=== PATIENT | female | born 1995 | race Hispanic/Latino ===

== ENCOUNTER 2025-01-30 15:33 | Emergency (ER) | payer SELFPAY ==
[2025-01-30 15:48] VITALS: BP 122/87
[2025-01-30 16:07] LABS: Hematocrit 37.5 % (37.0-47.0); Hemoglobin 11.7 g/dL (12.0-16.0); Mean Corp Hgb Conc. 31.2 g/dL (33.0-37.0); Mean Corpuscular Volume 68.8 fL (81.0-99.0); Nucleated Red Blood Cells % 0 %; Platelet Count 390 10^3/uL (130-400); Red Cell Dist. Width 21.7 % (11.5-14.5)
[2025-01-30 16:19] LABS: HCG, Serum Qualitative Screen Negative
[2025-01-30 16:22] LABS: ALT (SGPT) 21 U/L (0-35); AST (SGOT) 23 U/L (14-36); Albumin 4.4 g/dl (3.5-5.0); Alkaline Phosphatase 65 U/L (38-126); Blood Urea Nitrogen 16 mg/dl (7-17); Calcium 9.6 mg/dl (8.4-10.2); Carbon Dioxide 25 mmol/L (22-30); Chloride 104 mmol/L (98-107); Glucose 92 mg/dl (70-99); Lipase 150 U/L (23-300); Potassium 4.3 mmol/L (3.5-5.1); Sodium 134 mmol/L (135-145); Total Protein 7.6 g/dl (6.3-8.2); eGFR > 60.00
[2025-01-30] MEDS: NSS 1000 IV (18:17)
[2025-01-30] MEDS: TORADOL 15 MG IV (18:17)
[2025-01-30 19:04] LABS: Urine Character Slightly Cloudy (Clear)
--- NOTE | 2025-01-30 19:13 | ED.GENMED ---
History of Present Illness
General
Chief Complaint: Abdominal Pain
Source: patient
Exam Limitations: none
Time Seen by Provider: 01/30/25 17:05
Nursing documentation reviewed up to this point in time: agreed with
History of Present Illness
History of Present Illness:
Patient is a 30-year-old female who presents to the emergency department for evaluation of generalized abdominal discomfort. Patient states that symptoms began approximately 1 hour prior to arrival in the emergency department. She describes a very
vague and generalized pain throughout her abdomen that radiates into her left mid back. Symptoms were sharp and stabbing in nature. She denies any associated fever or chills. She has not had any episodes of vomiting or nausea. No diarrhea. No
dysuria or hematuria. She denies any chest pain or shortness of breath.
Patient denies any past history of similar symptoms.
Review of Systems
Review of Systems
Allergies reviewed?: Yes
All Other Systems: ROS reviewed and negative except as documented in HPI and ROS
Phy Exam
Physical Exam
Physical Exam:
Vitals: Patient's vital signs are stable. Afebrile
General: Patient is well appearing, no acute distress. Nontoxic appearing
Skin: Warm and dry, no rashes or lesions
Head: Normocephalic, atraumatic
Eyes: Sclera nonicteric.
Throat: Protecting airway
Neck: Normal ROM, no cervical spine tenderness, no meningismus
Cardiac: Regular rate and rhythm, no murmurs.
Pulm: Normal respiratory effort. Lungs clear bilaterally
Abdomen: Abdomen soft. Diffuse tenderness without rebound or guarding. No CVA tenderness or rash
Extremities: No evidence of cyanosis or edema
Neuro: AAOx3. Grossly intact.
Psychiatric: Normal affect.
Course
Orders/Labs/Results
Orders:
Orders
01/30/25 15:51
Test Result ONCE
01/30/25 15:54
Complete Blood Count/With Diff Urgent
Comprehensive Metabolic Panel Urgent
HCG, Serum Qualitative Screen Urgent
Lipase Urgent
01/30/25 18:05
CT Abd/pelvis W Iv Cont Urgent
Comment:
Reason For Exam: Diffuse abdominal pain radiating to left back
0.9% Sodium Chloride 1000 ml [Nss] 1,000 ml IV BOLUS
Ketorolac [Toradol] 15 mg IV NOW STA
01/30/25 18:19
Urinalysis Reflex To Culture Urgent
Date Specimen was Collected: 01/30/25
Time Specimen was Collected: 18:10
Urine Microscopic Reflex Cult Urgent
Abnormal Lab Results
01/30/25 01/30/25
15:54 18:19
RBC 5.45 H 10^6/uL
(4.20-5.40)
Hgb 11.7 L g/dL
(12.0-16.0)
MCV 68.8 L fL
(81.0-99.0)
MCH 21.5 L pg
(27.0-31.0)
MCHC 31.2 L g/dL
(33.0-37.0)
RDW 21.7 H %
(11.5-14.5)
Eosinophils % 6.7 H %
(0-6)
Sodium 134 L mmol/L
(135-145)
Creatinine 0.5 L mg/dL
(0.6-1.0)
Urine Bacteria (Reflex) Few A
(Negative)
Urine Albumin (Reflex) 1+ A
(Neg - Trace)
01/30/25 15:54
01/30/25 15:54
Vital Signs
Initial and Last Documented VS:
Initial Vital Signs
Temp Pulse Resp BP Pulse Ox
98.4 F 80 20 122/87 99
01/30/25 15:48 01/30/25 15:48 01/30/25 15:48 01/30/25 15:48 01/30/25 15:48
Last Documented Vital Signs
Temp Pulse Resp BP Pulse Ox
98.4 F 80 20 122/87 99
01/30/25 15:48 01/30/25 15:48 01/30/25 15:48 01/30/25 15:48 01/30/25 19:13
MDM/Problems Addressed
Differential Diagnosis Includes:
Not limited to: Gastritis, GERD, abdominal muscle strain, constipation appendicitis, renal colic, etc.
MDM/Problems Addressed:
30-year-old female with approximately 1 hour of vague abdominal discomfort radiating to back. Symptoms began a few hours after eating lunch. Denies fever, urinary symptoms, changes in bowel habits. No abnormal vaginal bleeding/discharge. No
chest pain or shortness of breath. Symptoms began differential broad. Vitals and physical exam as above. Patient appears well and in no distress. On abdominal exam, she has somewhat diffuse tenderness throughout her abdomen. No focal areas of
significant tenderness, specifically on McBurney's point. No rebound or guarding.
Possibly musculoskeletal or, however unable to rule out acute intra-abdominal infectious process. Basic labs were sent on triage without any clinically significant abnormalities. She has no leukocytosis or left shift. Chemistry unremarkable. I
do have somewhat low suspicion for acute intra-abdominal infectious process given patient has no leukocytosis and is afebrile. I discussed with patient symptomatic management and close follow-up at home worse proceeding with CT scan in emergency
department. After shared decision making�we will obtain CT scan and UA. Will give IV fluids, Toradol, and reassess.
Update: UA without evidence of acute infection. CT scan negative for acute findings. Her symptoms have improved. No evidence for acute emergent pathology. Feel stable for discharge home with strict return precautions. Patient comfortable with
plan.
Chronic conditions affecting care:
N/A
Acute Exacerbation and/or Progression of Chronic Illness:
N/A
*Radiology
Radiology exam reviewed: radiology read reviewed
*Pulse Oximetry
SaO2: 99
Oxygen Mode of Delivery: Room air
Patient hypoxic: no
*EKG
Interpreted by ED Provider?: NA
*Gravel Inspector Interpretation
Rate: Gravel Inspector- N/A
*Critical Care Note
Total Time (30-74mins, 75-104mins- exclusive of procedures): Not Applicable
ED Attending Note
-
Portions of this chart may have been created with voice recognition software.� Occasional wrong word or��sound alike� substitutions may have occurred due to the inherent limitations of voice recognition software.
Discharge Plan
Departure
Patient Disposition: Home (Routine Discharge)
Date of Disposition: 01/30/25
Time of Disposition: 20:27
Patient with high blood pressure during this ER visit?: No
Condition: Good
Discharge Problem:
Abdominal pain
Instructions: Abdominal Pain
Referrals:
NONE,* [Family Provider, Internal Medicine]
Activity Restrictions/Additional Instructions:
RETURN TO THE EMERGENCY DEPARTMENT ANY FEVER, PERSISTENT/WORSENING ABDOMINAL PAIN, INTRACTABLE NAUSEA OR VOMITING, SEVERE BACK PAIN, INABILITY TO URINATE, PERSISTENT LACK OF APPETITE, OR ANY OTHER CONCERNS
- As discussed your labs showed no acute abnormalities today in the emergency department. Your urinalysis showed no evidence of infection. Your CT scan showed no acute abnormalities.
- Your symptoms did improve after dose of IV Toradol.
- Please stay well-hydrated. You can take Tylenol and/or Motrin as needed for pain.
- Follow-up with your primary care provider for further evaluation/management to ensure that your symptoms are improving
Monitor your symptoms closely and return to the emergency department with any acute worsening/new symptoms or any other concerns
Interventions
Interventions:
*Risk Screen - Suicide Last Done: 01/30/25 15:48
*General Assessment Last Done: 01/30/25 15:48
*Neglect/Abuse Screening Last Done: 01/30/25 15:48
*ED COVID-19 Vaccine History Last Done: 01/30/25 18:29
*ED Influenza Vaccine History Last Done: 01/30/25 18:29
[facility] Fall Risk Assessment Tool Last Done: 01/30/25 18:28
*Nursing Disposition Last Done: 01/30/25 20:33
PE-Mskgut-Vxrxlkoiim Assessment Last Done: 01/30/25 18:07
Discharge Date and Time
Discharge Date/Time: 01/30/25 20:33
Print Language: POLISH
[2025-01-30 19:39] LABS: Urine Red Blood Cell 0-2 /HPF (0-2); Urine Squamous Cell 0-2 /LPF (Few); Urine White Cell 0-2 /HPF (0-5)
== END 2025-01-30 20:33 | disposition home or self-care (01) ==
LOC: EMR 15:33
PROVIDERS: Emergency Medicine; Physician Assistant; EMERGENCY PHYSICIAN Emergency Medicine
DX: R10.9 Unspecified abdominal pain (principal)
CPT/HCPCS: 99284; 96374; 96361; 74177; 80053; 81003; 81015; 83690; 84703; 85025; Q9967

== ENCOUNTER 2025-02-18 12:49 | Emergency (ER) | payer SELFPAY ==
[2025-02-18 13:03] VITALS: BP 115/76
--- NOTE | 2025-02-18 14:28 | ED.SKININJ ---
HPI-Injury
General
Chief Complaint: Eye Problems
Source: patient
Exam Limitations: none
Time Seen by Provider: 02/18/25 14:20
History of Present Illness-Injury
Initial Injury comments:
30-year-old female presents complaining of redness irritation and discharge from the left eye now the right eye. She woke this morning with this. She does not wear contacts. No known injury to the eye. No vision change. No fevers. She does
note a recent runny nose. No other complaints
Phy Exam
Physical Exam
Physical Exam:
General: Well-appearing female no acute respiratory distress
HEENT: Conjunctival inflammation left eye greater than the right eye. No visible foreign bodies. Pupils equal round reactive to light posterior pharynx patent neck is supple no adenopathy
Course
Orders/Labs/Results
Orders:
Orders
02/18/25 14:28
Gentamicin [Genoptic 0.3% Eye Drops] See Dose Instructions OPHTH NOW STA
Vital Signs
Initial and Last Documented VS:
Initial Vital Signs
Temp Pulse Resp BP Pulse Ox
98.4 F 82 18 115/76 99
02/18/25 13:03 02/18/25 13:03 02/18/25 13:03 02/18/25 13:03 02/18/25 13:03
Last Documented Vital Signs
Temp Pulse Resp BP Pulse Ox
98.1 F 82 18 115/76 99
02/18/25 13:04 02/18/25 13:03 02/18/25 13:03 02/18/25 13:03 02/18/25 13:03
*Pulse Oximetry
SaO2: 99
Patient hypoxic: no
*Critical Care Note
Total Time (30-74mins, 75-104mins- exclusive of procedures): Not Applicable
Update Note
Update Note:
Patient exam most consistent with conjunctivitis. Will cover with antibiotic drops. Recommended warm compresses otherwise. Stable for discharge
ED Attending Note
-
Portions of this chart may have been created with voice recognition software.� Occasional wrong word or��sound alike� substitutions may have occurred due to the inherent limitations of voice recognition software.
Discharge Plan
Departure
Patient Disposition: Home (Routine Discharge)
Date of Disposition: 02/18/25
Time of Disposition: 14:30
Patient with high blood pressure during this ER visit?: No
Discharge Problem:
Conjunctivitis
Activity Restrictions/Additional Instructions:
Use 1 drop into both eyes 4 times a day. Use warm compresses. Return if worse otherwise follow-up with your doctor
Discharge Date and Time
Print Language: BELARUSIAN
[2025-02-18] MEDS: GENOPTIC 0.3% EYE DROPS 1 DROP OPHTH (14:36)
== END 2025-02-18 14:49 | disposition home or self-care (01) ==
LOC: EMR 12:49
PROVIDERS: EMERGENCY PHYSICIAN Emergency Medicine
DX: H10.9 Unspecified conjunctivitis (principal)
CPT/HCPCS: 99282